=== PATIENT | male | born 1955 | race Hispanic/Latino ===

== ENCOUNTER 2025-01-23 10:27 | Day surgery (SDC) | payer OTHER ==
[2025-01-16 08:54] LABS: Absolute Lymphocytes (CBC) 1.1 K/uL (0.7-4.9); Hematocrit 36.6 % (39.6-49.0); Hemoglobin 11.9 g/dL (13.6-17.9); MCH 35.7 pg (27.0-35.0); MCHC 32.4 g/dL (32.0-36.0); MCV 110.1 fL (80-100); MPV 9.7 fL (7.6-11.3); Nucleated RBC Absolute Count 0.0 (0-0); Nucleated Red Blood Cells % 0.1 % (0-0); RBC Red Blood Cell Count 3.32 M/uL (4.33-5.43); White Blood Count 3.90 thou/uL (4.3-10.9)
[2025-01-16 08:59] LABS: Sqamous Epithelial <5 /HPF (None Seen); Urine Crystals Unidentified Few /HPF (None Seen); Urine Culture Reflex Order REFLEXED; Urine Microscopic Reflex YN ORDER UMIC; Urine WBC Clump Rare /HPF (None Seen); Urine Yeast (Budding) Occasional /HPF (None Seen)
[2025-01-16 09:03] LABS: PT Prothrombin Time 18.4 SECONDS (10-13.0); PTT, Activated Partial Thromb 33.9 SECONDS (27.2-37.4); Protime INR 1.65
[2025-01-16 09:10] LABS: Anion Gap 6.6 mEq/L (5.0-15.0); BUN Blood Urea Nitrogen 13.0 mg/dL (7-18); Glucose Level 168.0 mg/dL (74-106); Potassium 4.6 mEq/L (3.5-5.1)
--- NOTE | 2025-01-16 09:13 | RAD REPORT ---
Procedure: Chest Pa And Lat (2 Views) HISTORY: Colon cancer. Preop COMPARISON: none FINDINGS: The lungs appear clear of acute infiltrate. No significant pleural effusion noted. The heart is normal size. Mildly enlarged. AICD in place IMPRESSION: No acute abnormality is displayed.
[2025-01-16 09:40] LABS: Blood Morphology Comment NOTED (NOT SEEN); Macrocytosis 2+; White Blood Cell Scan OK (OK)
[2025-01-23] MEDS ORDERED: NA CHLORIDE 0.9% 1,000 ML ONE (11:02)
[2025-01-23] MEDS ORDERED: LIDOCAINE 2% MPF 5 ML VIAL ONE (13:12)
[2025-01-23] MEDS ORDERED: MIDAZOLAM HCL 2 MG/2 ML INJ ONE (13:12)
[2025-01-23] MEDS ORDERED: FENTANYL CITR 100 MCG/2 ML ONE (13:12)
[2025-01-23] MEDS ORDERED: ROCURONIUM 50 MG/5 ML VIAL IV ONE (13:12)
[2025-01-23] MEDS ORDERED: ONDANSETRON 4 MG/2 ML VIAL ONE (13:12)
[2025-01-23] MEDS: CEFTRIAXONE 1000 MG/VIAL ONE (13:53)
[2025-01-23] MEDS ORDERED: EPHEDRINE SULF 50 MG/ML VIAL ONE (13:57)
[2025-01-23] MEDS ORDERED: Mastisol Adhesive Liq ONE (14:34)
[2025-01-23] MEDS ORDERED: TRAMADOL 37.5mg/APAP 325mg PER TAB PO ONE (15:14)
[2025-01-23] MEDS ORDERED: PHENAZOPYRIDINE 100MG TAB PO ONE (15:14)
--- NOTE | 2025-01-23 15:40 | P.OP ---
Date of Service: 01/23/25 Preoperative diagnoses: Central right renal pelvic mass -2.2 cm from 05/08/2024 CT Postoperative diagnoses: Central right renal pelvic mass -2.2 cm from 05/08/2024 CT Prominent right renal papilla suspected. Phimosis due to posthitis Principal procedure: Right ureteroscopy with pyeloscopy Pyeloscopic right renal biopsy Right 6 Micronesian by 26 cm double-J tether ureteral stent exchange Indications for procedure: 69-year-old gentleman presented to the urology clinic with a 2.2 cm central right renal mass lesion. On review of his anatomic imaging, no significant enhancement was appreciable on the arterial phase, but on the portal venous phase, there was about 20 Hounsfield units of enhancement seen. Given its central location, suspected to be representing a filling defect, definitive evaluation via ureteroscopy was recommended. He previously underwent right ureteral stent placement because of ureteral spasm/stenosis. Procedure note: The patient was consented in the preoperative holding area before being transferred to the operative suite where general anesthesia was induced. He was given ceftriaxone 1 g IV antimicrobial prophylaxis, and pneumoboots were provided for DVT prophylaxis. He was placed in the lithotomy position, padded and secured to the table appropriately. His genitalia was prepped with Hibiclens and he was draped in standard fashion. Because of phimosis and the inability to retract the foreskin, additional preparation beneath the foreskin was done using Betadine and a Ray-Tony sponge. The case was begun using a 22 Micronesian rigid cystoscope to traverse the urethra and into the bladder with ease. The bladder was decompressed of fluid and urine, and the stent emanating from the right ureteral orifice was grasped and the tip delivered to the meatus leaving the proximal coil within the mid ureter as evidenced fluoroscopically. I then advanced a sensor wire via the stent coiling it within the putative renal pelvis and calyces. Over the sensor wire, I remove the stent and placed a dual- lumen catheter into the proximal ureter. Right retrograde pyelography: Using a 70: 30 mixture of Omnipaque and saline, contrast was injected via the second lumen of the dual-lumen catheter and did fill the renal pelvis and the lower pole calyces. The mid and upper pole calyces did not distinctly fill on this contrast examination. However, given the plan was for definitive ureteroscopy, I advanced a [employer] guidewire via the second lumen of the dual- lumen catheter and remove the dual-lumen catheter, passing the flexible ureteroscope over the [employer] guidewire into the collecting system. I then surveyed each of the calyces of the collecting system, using sterile water as the irrigant fluid. Throughout the renal pelvis and the upper, mid and lower pole calyces, which I was able to delineate using contrast injected via the ureteroscope and ensure each calyceal location was directly visualized, I identified no worrisome renal masses, certainly not something 2.2 cm in size. The only variation I observed was what appeared to be a prominent papilla present within the upper pole infundibulum. Given this, I utilized Piranha biopsy forceps to sample this area 3 times, which was sent in formalin for pathologic analysis. I again surveyed the calyces to ensure nothing was missed before surveying down into the renal pelvis and the ureter on the way out. I then backed the dual-lumen catheter over the sensor wire into the renal pelvis, and I collected urine from the renal pelvis before using 20 cc of sterile saline irrigated via the dual-lumen catheter in order to collect additional fluid for barbotage right renal cytology, which was sent for pathologic analysis. I removed the dual-lumen catheter. I then backloaded the cystoscope over the indwelling sensor safety wire and passed a 6 Micronesian by 26 cm double-J ureteral stent tether to a string with a coil observed fluoroscopically in the renal pelvis and 1 cystoscopically formed in the bladder. I decompressed his bladder of fluid and urine and placed the tether attached to the foreskin using Mastisol and Steri-Strips. He was then taken out of the lithotomy position, awakened from general anesthesia, transferred to a stretcher, and then transferred to the recovery room in good condition. Complications: None Discharge disposition: He should follow-up on or Wednesday in the urology clinic to have the tethered ureteral stent removed. He was instructed to resume his Eliquis/apixaban after the stent has been removed as long as the urine is not significantly bloody. Subsequent follow-up should be established with me within the next 1 to 2 weeks to discuss the pathology of the biopsy of the suspected prominent renal papilla seen and to review the results of the barbotage right renal wash cytology. Since I assume those both will return expectedly benign, we have to consider that the central renal mass observed may actually be potentially renal cell in origin and thus not visible ureteroscopically. To that end, consideration for renal biopsy percutaneously may be necessary in the near future. Since the mass has not grown significantly, there is certainly room for observation with repeat imaging at the patient's discretion.
--- NOTE | 2025-01-23 16:39 | RAD REPORT ---
EXAM: Fluoroscopy use, Urethrocystogrphy Retrograde HISTORY: RIGHT STENT COMPARISON: None FINDINGS: A total of 28 images were sent to PACS, during a fluoroscopically guided right ureteroscopy and ureteral stent exchange. No radiologist was involved in protocoling or performance of the study, and no radiologist was present for the duration of the procedure. No interpretation of the nick ed images will be provided. Total fluoroscopy time: 26 seconds. Cumulative dose: 17.4 mGy IMPRESSION: Documentation of fluoroscopy use as above.
[2025-01-23 16:44] VITALS: BP 152/63; TEMP 98.2; O2SAT 99
== END 2025-01-23 16:38 | disposition home or self-care (01) ==
LOC: OR 10:27
PROVIDERS: ATTEND Urology
PROC: 0T768DZ Dilation of Right Ureter with Intraluminal Device, Via Natural or Artificial Opening Endoscopic (ICD-10-PCS; 2025-01-23)
PROC: 0TB08ZX Excision of Right Kidney, Via Natural or Artificial Opening Endoscopic, Diagnostic (ICD-10-PCS; principal; 2025-01-23 11:30)
DX: N35.919 Unspecified urethral stricture, male, unspecified site (principal); N28.89 Other specified disorders of kidney and ureter; N47.1 Phimosis; N47.7 Other inflammatory diseases of prepuce
CPT/HCPCS: 87088; 85025; 81001; 87086; 80048; 36415; 85610; 82947 ×2; 85730; 71046; 74450; 51610; 52354; 52332; J2704; J2003; J2250; J3010; J1100; J2405; J7030; J0696; 88108; 88305